=== PATIENT | female | born 1980 | race Caucasian/White ===

== ENCOUNTER 2018-03-01 19:07 | Emergency (ER) | payer SELFPAY ==
[~2018-03-01] VITALS: Ht 167.6 cm; Wt 64.0 kg
[2018-03-01 19:14] VITALS: BP 106/80
== END 2018-03-01 21:07 | disposition left against medical advice (07) ==
LOC: ER 19:07
DX: Z53.21 Procedure and treatment not carried out due to patient leaving prior to being seen by health care provider (principal)